=== PATIENT | male | born 1955 | race Caucasian/White ===

== ENCOUNTER 2016-12-22 20:55 | Emergency (ER) | payer SELFPAY ==
[~2016-12-22] VITALS: Ht 167.6 cm; Wt 104.5 kg
[2016-12-22 21:25] VITALS: Ht 167.6 cm; Wt 104.5 kg
[2016-12-22] MEDS ORDERED: ASPIRIN 325 MG TAB PO STA (21:26)
[2016-12-22 21:49] LABS: ADD SCAN DIFF NO
[2016-12-22] MEDS ORDERED: morphine 4 MG/ML VIAL IV STA (21:51)
[2016-12-22 21:52] LABS: BASOPHILS % 0.5 % (0.0-2.0); EOSINOPHILS # 0.2 10^3/ul (0.0-0.5); EOSINOPHILS % 2.6 % (0.0-7.0); HEMATOCRIT 42.5 % (42.0-52.0); HEMOGLOBIN 13.6 g/dl (14.0-18.0); LYMPHOCYTES # 2.7 10^3/ul (0.8-2.9); LYMPHOCYTES % 33.2 % (15.0-51.0); MEAN CORPUSCULAR VOLUME 87.6 fl (82.0-101.0); MEAN PLATELET VOLUME 10.9 fl (7.4-10.4); MONOCYTE # 0.6 10^3/ul (0.3-0.9); MONOCYTES % 7.2 % (0.0-11.0); NEUTROPHIL # 4.6 10^3/ul (1.6-7.5); NEUTROPHILS % 56.3 % (39.0-77.0); PLATELET COUNT 189 10^3/UL (140-415); RED BLOOD COUNT 4.85 10^6/ul (4.70-6.10); WHITE BLOOD COUNT 8.1 10^3/ul (4.8-10.8)
--- NOTE | 2016-12-22 21:57 | ERD ---
ER Documentation Chief Complaint Date/Time DATE: 12/22/16 TIME: 21:54 Chief Complaint abd/bilat lower extremities swelling x2days HPI 61-year-old male presents emergency room for increasing shortness of breath for the last few days as well as increasing right lower leg swelling. He has chest pain but states the chest pain is been chronic on and off for 3 years. He does have aortic valve replacement for which she is taking Coumadin. He also complains of inability to reduce his umbilical hernia with some pain around the site. He was previously able to reduce this. He has nausea for the last few days but has not yet vomited. He is having difficulty eating secondary to the nausea. ROS All systems reviewed and are negative except as per history of present illness. Medications Home Meds Active Scripts Albuterol Sulfate* (Ventolin HFA*) 18 Gm Hfa.aer.ad, 2 PUFF INHALATION Q4H, #1 INHALER Prov:JESSIE REYES DO 12/23/16 Simethicone (Simethicone) 125 Mg Capsule, 125 MG PO Q12, #30 CAP Prov:JESSIE REYES DO 12/23/16 Naproxen* (Naproxen*) 500 Mg Tablet, 500 MG PO BID Y for PAIN, #20 TAB Prov:JESSIE REYES DO 12/23/16 Furosemide* (Furosemide*) 40 Mg Tablet, 40 MG PO DAILY, #30 TAB Prov:JESSIE REYES DO 12/23/16 Metformin Hcl* (Metformin Hcl*) 500 Mg Tablet, 500 MG PO WITH BREAKFAST, #30 TAB Prov:JESSIE REYES DO 12/23/16 Salmeterol Xinaf-Fluticasone* (Advair HFA*) 115/21 Aerosol Inhaler, 2 INH IH BID , #1 INHALER Prov:JESSIE REYES DO 12/23/16 Tiotropium Irving* (Spiriva*) 18 Mcg Cap.w.dev, 1 CAP INHALATION DAILY, #30 CAP Prov:JESSIE REYES DO 12/23/16 Reported Medications Multivitamins* (Theragran*) 1 Tab Tab, 1 TAB PO DAILY, TAB 12/22/16 Docusate Sodium* (Colace*) 100 Mg Capsule, 100 MG PO DAILY, #30 CAP 12/22/16 Oxycodone Hcl* (IR) (Oxycodone Hcl*) 5 Mg Capsule, 5 MG PO Q6H Y for PAIN, CAP 12/22/16 Metformin Hcl* (Metformin Hcl*) 1,000 Mg Tablet, 1000 MG PO WITH BREAKFAST DINNE , #60 TAB 12/22/16 Albuterol Sulfate (Proair Respiclick) 90 Mcg Aer.pow.ba, 2 PUFFS INHALATION Q6, #1 BOTTLE 12/22/16 Furosemide* (Furosemide*) 80 Mg Tablet, 80 MG PO BID, #60 TAB 12/22/16 Carvedilol* (Carvedilol*) 6.25 Mg Tablet, 6.25 MG PO DAILY, #60 TAB 12/22/16 Atorvastatin* (Atorvastatin*) 80 Mg Tablet, 80 MG PO DAILY, #30 TAB 12/22/16 Enalapril Maleate* (Enalapril Maleate*) 2.5 Mg Tablet, 2.5 MG PO DAILY, TAB 12/22/16 Aspirin* (Aspirin* EC) 81 Mg Tablet.dr, 81 MG PO DAILY, TAB 12/22/16 Discontinued Reported Medications Oxycodone Hcl (Roxicodone) 5 Mg Tablet, 5 MG PO, TAB 12/22/16 Allergies Allergies: Coded Allergies: No Known Allergy (Unverified , 12/22/16) Physical Exam Vitals Vital Signs Date Time Temp Pulse Resp B/P Pulse Ox O2 Delivery O2 Flow Rate FiO2 12/23/16 01:09 68 16 97/78 93 Room Air 12/23/16 00:07 88 22 100/81 98 Nasal Cannula 2.0 12/22/16 22:24 72 22 100 21 12/22/16 21:53 Nasal Cannula 3 12/22/16 21:25 97.7 80 14 119/99 98 Physical Exam Const: [] Mild distress, appears uncomfortable, obese Head: Atraumatic Eyes: Normal Conjunctiva ENT: Normal External Ears, Nose and Mouth. Neck: Full range of motion..~ No meningismus. Resp: Bilateral mild expiratory wheezes Cardio: Regular rate and rhythm, no murmurs Abd: Soft, tympanic distention, approximately 4 cm spherical umbilical hernia that is not currently reducible the patient has pain on attempted reduction guarding or rebound. Normal bowel sounds Skin: No petechiae or rashes Back: No midline or flank tenderness Ext: No cyanosis, right lower extremity mild pitting edema, trace left pedal edema. Neur: Awake and alert and oriented 3, no focal deficits Psych: Normal Mood and Affect Result Diagram: 12/22/16213412/22/162134 Results 24 hrs Laboratory Tests Test 12/22/16 21:35 White Blood Count 8.110^3/ul Red Blood Count 4.8510^6/ul Hemoglobin 13.6g/dl Hematocrit 42.5% Mean Corpuscular Volume 87.6fl Mean Corpuscular Hemoglobin 28.0pg Mean Corpuscular Hemoglobin Concent 32.0g/dl Red Cell Distribution Width 15.0% Platelet Count 87027^3/UL Mean Platelet Volume 10.9fl Neutrophils % 56.3% Lymphocytes % 33.2% Monocytes % 7.2% Eosinophils % 2.6% Basophils % 0.5% Nucleated Red Blood Cells % 0.0/100WBC Neutrophils # 4.610^3/ul Lymphocytes # 2.710^3/ul Monocytes # 0.610^3/ul Eosinophils # 0.210^3/ul Basophils # 0.010^3/ul Nucleated Red Blood Cells # 0.010^3/ul Prothrombin Time 14.7Sec Prothrombin Time Ratio 1.1 INR International Normalized Ratio 1.15 Activated Partial Thromboplast Time 30.9Sec Sodium Level 140mmol/L Potassium Level 4.4mmol/L Chloride Level 101mmol/L Carbon Dioxide Level 31mmol/L Anion Gap 12 Blood Urea Nitrogen 22mg/dl Creatinine 1.08mg/dl Glucose Level 89mg/dl Calcium Level 9.2mg/dl Total Bilirubin 0.4mg/dl Direct Bilirubin 0.00mg/dl Indirect Bilirubin 0.4mg/dl Aspartate Amino Transf (AST/SGOT) 60IU/L Alanine Aminotransferase (ALT/SGPT) 51IU/L Alkaline Phosphatase 89IU/L Troponin I 0.024ng/ml B-Type Natriuretic Peptide 2840PG/ML Total Protein 6.9g/dl Albumin 4.0g/dl Lipase 38U/L Current Medications Medications (Trade) Dose Ordered Sig/Kitty Route PRN Reason Start Time Stop Time Status Last Admin Dose Admin Aspirin (Aspirin) 325 mg ONCE STAT PO 12/22/16 21:26 12/22/16 21:27 DC 12/22/16 21:50 Ondansetron HCl (Zofran Inj) 4 mg ONCE STAT IV 12/22/16 21:51 12/22/16 21:55 DC 12/23/16 00:12 Morphine Sulfate (morphine) 4 mg ONCE STAT IV 12/22/16 21:51 12/22/16 21:55 DC Albuterol (Proventil 0.083% (Neb)) 10 mg ONCE STAT HHN 12/22/16 22:12 12/22/16 22:13 DC 12/22/16 22:23 Ipratropium Irving (Atrovent 0.02% (Neb)) 1 mg ONCE ONCE HHN 12/22/16 22:30 12/22/16 22:31 DC 12/22/16 22:24 Furosemide 40 mg 40 mg ONCE ONCE IV 12/22/16 23:00 12/22/16 23:01 DC 12/22/16 22:58 Sodium Chloride (NS) 100 ml @ ud STK-MED ONCE .ROUTE 12/22/16 23:38 12/22/16 23:39 DC 12/23/16 00:00 Iohexol (Omnipaque 300mg/ ml) 150 ml STK-MED ONCE .ROUTE 12/22/16 23:38 12/22/16 23:39 DC 12/23/16 00:00 Prednisone (Prednisone) 60 mg ONCE ONCE PO 12/23/16 01:30 12/23/16 01:31 DC 12/23/16 01:54 Procedures/MDM EKG interpretation: Normal sinus rhythm rate of 79, normal axis, very slight T- wave inversions in the lateral leads suspicious for ischemia, QT of 488 JESSIE REYES DO December 22, 2016 21:57
[2016-12-22] MEDS ORDERED: ENAL2.5T PO (22:05)
[2016-12-22] MEDS ORDERED: ASPI-664 PO (22:05)
[2016-12-22] MEDS ORDERED: ATOR80TA75 PO (22:05)
[2016-12-22] MEDS ORDERED: CARV6.2579 PO (22:06)
[2016-12-22] MEDS ORDERED: FURO80TA3 PO (22:06)
[2016-12-22 22:08] LABS: INR 1.15; PROTIME 14.7 Sec (12.2-14.2); PT RATIO 1.1
[2016-12-22 22:09] LABS: PARTIAL THROMBOPLASTIN TIME 30.9 Sec (25.0-35.0)
[2016-12-22] MEDS ORDERED: ALBU90AE INHALATION (22:10)
[2016-12-22] MEDS ORDERED: METF1000 PO (22:10)
[2016-12-22 22:11] LABS: CALCIUM 9.2 mg/dl (8.4-10.2); CREATININE 1.08 mg/dl (0.61-1.24); POTASSIUM 4.4 mmol/L (3.5-5.1)
[2016-12-22] MEDS ORDERED: DOCU-144 PO (22:12)
[2016-12-22] MEDS ORDERED: ALBUTEROL 0.083% (NEB) 2.5 MG/3 ML AMP HHN STA (22:12)
[2016-12-22] MEDS ORDERED: OXYC5TAB2 PO (22:12)
[2016-12-22] MEDS ORDERED: OXYC5CAP17 PO (22:12)
[2016-12-22] MEDS ORDERED: MULTI PO (22:13)
[2016-12-22] MEDS: ONDANSETRON 4 MG INJ IV STA (22:14)
[2016-12-22 22:21] LABS: BILIRUBIN,INDIRECT 0.4 mg/dl (0-1.1); BILIRUBIN,TOTAL 0.4 mg/dl (0.2-1.3); TOTAL PROTEIN 6.9 g/dl (6.1-8.1)
[2016-12-22 22:23] LABS: TROPONIN-I 0.024 ng/ml (0.00-0.12)
[2016-12-22] MEDS ORDERED: IPRATROPIUM (NEB) 0.5 MG/2.5 ML AMP HHN ONE (22:30)
--- NOTE | 2016-12-22 22:32 | RADRPT ---
PROCEDURE: XR Chest. CLINICAL INDICATION: Chest pain TECHNIQUE: Single frontal chest x-ray. COMPARISON: None. FINDINGS: The lungs are clear. No focal opacification is seen. The cardiomediastinal silhouette is remarkabl e for significant cardiomegaly. Postsurgical changes are seen from previous aortic valve replacemen t. Post surgical median sternotomy wires are identified. The osseous structures are unremarkable. Left chest AICD device is in place, in good position without evidence for pneumothorax. IMPRESSION: 1. Cardiomegaly with single lead left chest AICD device. 2. Prosthetic aortic valve. 3. No acute pulmonary infiltrate. RPTAT: HMJB .Heath Bowden MD, Date Time Electronically viewed and signed by .Heath Bowden MD, on 12/22/2016 22:32 .B/
[2016-12-22] MEDS ORDERED: FUROSEMIDE 40 MG INJ IV ONE (23:00)
[2016-12-22] MEDS ORDERED: SOD CHLORIDE 0.9% 100 ML ONE (23:38)
[2016-12-22] MEDS ORDERED: IOHEXOL 300MG/ML 150 ML BTL ONE (23:38)
[2016-12-23] MEDS: ONDANSETRON 4 MG INJ IV STA (00:12)
--- NOTE | 2016-12-23 00:46 | RADRPT ---
PROCEDURE: CT Abdomen and pelvis with contrast. CLINICAL INDICATION: Abdominal pain. TECHNIQUE: CT scan of the abdomen and pelvis with contrast was performed on a multi-detector high -resolution CT scanner. The patient was scanned following the uncomplicated administration of 100 c c of Omnipaque 300 intravenous contrast. Coronal and sagittal reformatted images were obtained from the axial source images. Images were reviewed on a high-resolution PACS workstation. One or more of the following dose reduction techniques were used: - Automated exposure control. - Adjustment of the mA and/or kV according to patient size. - Use of iterative reconstruction technique. Exam CTD/vol = 21.66 mGy. Total exam DLP = 1330.95 mGy-cm. COMPARISON: None. FINDINGS: Evaluation of the lung bases demonstrates mild bibasilar atelectasis and small right pleural effusio n. The heart is mildly enlarged. Abdomen: The liver is normal in size. There is no focal mass or dilatation of the biliary tree. T he gallbladder is not distended. The spleen, pancreas and right adrenal gland are within normal cabrales its. There is a nodule within the left adrenal gland measuring 1.7 x 1.6 cm. Bilateral kidneys are normal in size with symmetric enhancement. There is no focal mass, hydronephrosis or hydroureter. There is no retroperitoneal adenopathy. The abdominal aorta is of normal caliber with mild scattere d atherosclerotic calcifications. There is a moderate periumbilical hernia containing fat. There is no bowel obstruction or free air. A normal appendix is identified. There is no diverticulosis or diverticulitis. There is mild abd ominal free fluid. Pelvis: The bladder is unremarkable. There is mild pelvic free fluid. The prostate and seminal ve sicles are within normal limits. There is no significant pelvic adenopathy. Evaluation of the osseous structures demonstrates no suspicious lytic or blastic lesion. There is pr ior laminectomy and interbody fusion at L3-L4, L4-L5 and L5-S1 with bilateral rods and pedicle screw s. IMPRESSION: Mild abdominal and pelvic free fluid. Moderate periumbilical hernia containing fat. Mild bibasilar atelectasis and small right pleural effusion. Mild cardiomegaly. Left adrenal nodule. Mild vascular calcifications reflective of atherosclerosis. Postsurgical changes of the lumbar spine. .Judson Donohue MD, MD Date Time Electronically viewed and signed by .Judson Donohue MD, MD on 12/23/2016 00:46 .T/
[2016-12-23 01:09] VITALS: BP 97/78; PULSE 68; RESP 16
[2016-12-23] MEDS ORDERED: predniSONE 20 MG TAB PO ONE (01:30)
[2016-12-23] MEDS ORDERED: TIOT18CA INHALATION (02:11)
[2016-12-23] MEDS ORDERED: FURO40TA4 PO (02:11)
[2016-12-23] MEDS ORDERED: ALBU18HF INHALATION (02:11)
[2016-12-23] MEDS ORDERED: METF500T4 PO (02:11)
[2016-12-23] MEDS ORDERED: FLUT12HF2 IH (02:11)
[2016-12-23] MEDS ORDERED: NAPR-688 PO (02:11)
[2016-12-23] MEDS ORDERED: SIME125C69 PO (02:11)
== END 2016-12-23 02:26 | disposition home or self-care (01) ==
LOC: E/R 20:55
DX: J44.1 Chronic obstructive pulmonary disease with (acute) exacerbation (principal); I50.9 Heart failure, unspecified; R07.89 Other chest pain; K43.9 Ventral hernia without obstruction or gangrene; R06.02 Shortness of breath; Z79.01 Long term (current) use of anticoagulants; Z79.82 Long term (current) use of aspirin
CPT/HCPCS: 71010; 74177; 80048; 80076; 83690; 83880; 84484; 85025; 85610; 85730; 93005; 94644; J1940; J2405; J7512; Q9967; 36415; 96374; 96375